=== PATIENT | female | born 1990 | race African-American/Black ===

== ENCOUNTER 2019-04-10 11:24 | Emergency (ER) | payer OTHER ==
[2019-04-10 11:47] VITALS: PULSE 88; BMI 24.3
[2019-04-10] MEDS ORDERED: FAMOTIDINE 20 MG/50 ML IVPB 20 MG/50 ML MG IVPB ONE ×2 (12:06→12:30)
[2019-04-10] MEDS ORDERED: SODIUM CHLORIDE 1,000 ML IV STA (12:06)
[2019-04-10] MEDS ORDERED: ONDANSETRON 4 MG/2 ML VIAL IVPUSH ONE (12:07)
[2019-04-10] MEDS ORDERED: ONDANSETRON 4 MG/2 ML VIAL ONE (12:30)
[2019-04-10 12:53] LABS: PH,URINE 7.5 (5.0-8.0); URINE APPEARANCE CLEAR; URINE BILIRUBIN NEGATIVE (NEGATIVE); URINE COLOR YELLOW; URINE GLUCOSE (UA) NEGATIVE (NEGATIVE); URINE KETONE NEGATIVE (NEGATIVE); URINE LEUK ESTERASE NEGATIVE (NEGATIVE); URINE NITRITE NEGATIVE (NEGATIVE); URINE PROTEIN NEGATIVE (NEGATIVE); URINE UROBILINOGEN 0.2 mg/dL (0.2-1.0)
[2019-04-10 12:56] LABS: BASO % 0.3 % (0-2.0); EOS % 0.3 % (0-4.5); HEMATOCRIT 34.7 % (32.4-45.2); HEMOGLOBIN 11.8 GM/dL (10.7-15.3); MCH 27.3 pg (25.7-33.7); MEAN CELL VOLUME 80.2 fl (80-96); MEAN PLT VOLUME 8.7 fl (7.5-11.1); MONO % 4.8 % (3.8-10.2); NEUT % 86.6 % (42.8-82.8); PLATELET COUNT 232 K/MM3 (134-434); RBC 4.32 M/mm3 (3.60-5.2); WHITE BLOOD COUNT 11.6 K/mm3 (4.0-10.0)
[2019-04-10 13:25] LABS: ALBUMIN 3.5 g/dl (3.4-5.0); BILIRUBIN,TOTAL 0.3 mg/dL (0.2-1); BLOOD UREA NITROGEN 7.9 mg/dL (7-18); CALCIUM 9.2 mg/dL (8.5-10.1); CREATININE 0.5 mg/dL (0.55-1.3); POTASSIUM 3.7 mmol/L (3.5-5.1); TOT PROT 7.3 g/dl (6.4-8.2)
--- NOTE | 2019-04-10 14:48 | PDOC ---
Documentation entered by Clem Rausch SCRIBE, acting as scribe for Phoenix Smith MD. Phoenix Smith MD: This documentation has been prepared by the Shalom kimble Daniel, SCRIBE, under my direction and personally reviewed by me in its entirety. I confirm that the documentation accurately reflects all work, treatment, procedures, and medical decision making performed by me. History of Present Illness - General Chief Complaint: Pain Stated Complaint: 8 WEEKS/ ABD PAIN History Source: Patient Exam Limitations: No Limitations - History of Present Illness Initial Comments: 04/10/19 12:10 The patient is a 29 year old female with a past medical history of appendectomy (July 2012, [facility]) here today for evaluation of abdominal pain. The patient reports that the pain started suddenly around 10 AM this morning and describes it as constant first but now intermittent, most prominent in the upper abdominal area, and notes associated nausea, vomiting, and dizziness. She states that she is 8 weeks and that this is a desired . Patient denies headache. Denies fever, chills. Denies chest pain, shortness of breath. Denies diarrhea. Allergies: NKA Past History - Past Medical History Allergies/Adverse Reactions: Allergies Allergy/AdvReac Type Severity Reaction Status Date / Time No Known Allergies Allergy Verified 04/10/19 11:47 Home Medications: Ambulatory Orders Famotidine [Pepcid -] 20 mg PO BID #14 tablet 04/10/19 Review of Systems - Review of Systems Able to Perform ROS?: Yes Comments:: 04/10/19 12:10 CONSTITUTIONAL: +dizziness. No fever, no chills, no fatigue EYES: No visual changes ENT: No ear pain, no sore throat CARDIOVASCULAR: No chest pain, no palpitations RESPIRATORY: No cough, no SOB GI: +abdominal pain. +nausea. +vomiting. No constipation, no diarrhea GENITOURINARY: No dysuria, no frequency, no hematuria MUSKULOSKELETAL: No backpain, no joint pain, no myalgias SKIN: No rash NEURO: No headache *Physical Exam - Vital Signs Last Vital Signs Temp Pulse Resp BP Pulse Ox 97.8 F 88 18 130/90 100 04/10/19 11:37 04/10/19 11:37 04/10/19 11:37 04/10/19 11:37 12/04/19 11:37 - Physical Exam 04/10/19 12:14 CONSTITUTIONAL: Well-appearing; well-nourished; in no apparent distress HEAD: Normocephalic; atraumatic EYES: PERRL; EOM intact, no scleral icterus ENMT: External appears normal; normal oropharynx NECK: Supple; non-tender; no cervical lymphadenopathy CARD: Normal S1, S2; no murmurs, rubs, or gallops RESP: Normal chest excursion with respiration; breath sounds clear and equal bilaterally; no wheezes, rhonchi, or rales ABD: +right upper quadrant and epiagstric tenderness to palpation. Soft, non- distended; no palpable organomegaly, no palpable hernias EXT: Normal ROM in all four extremities; non-tender to palpation; distal pulses intact SKIN: Warm, dry, no rash NEURO: No focal neurological deficiencies. ED Treatment Course - LABORATORY CBC & Chemistry Diagram: 04/10/19 12:17 04/10/19 12:17 - ADDITIONAL ORDERS Additional order review: Laboratory Results 04/10/19 04/10/19 12:17 12:17 Sodium 136 Potassium 3.7 Chloride 103 Carbon Dioxide 24 Anion Gap 10 BUN 7.9 Creatinine 0.5 L Est GFR (CKD-EPI)AfAm 153.73 Est GFR (CKD-EPI)NonAf 132.64 Random Glucose 72 L Calcium 9.2 Total Bilirubin 0.3 AST 12 L ALT 16 Alkaline Phosphatase 64 Total Protein 7.3 Albumin 3.5 Lipase 141 Urine Color Yellow Urine Appearance Clear Urine pH 7.5 Ur Specific Adrian 1.013 Urine Protein Negative Urine Glucose (UA) Negative Urine Ketones Negative Urine Blood Negative Urine Nitrite Negative Urine Bilirubin Negative Urine Urobilinogen 0.2 Ur Leukocyte Esterase Negative 04/10/19 12:17 RBC 4.32 MCV 80.2 MCHC 34.0 RDW 14.0 MPV 8.7 Neutrophils % 86.6 H Lymphocytes % 8.0 Monocytes % 4.8 Eosinophils % 0.3 Basophils % 0.3 - RADIOLOGY Radiology Studies Ordered: Category Date Time Status ABDOMEN US -LIMITED [US] Stat Ultrasound 04/10/19 12:05 Completed <14WKS US [US] Stat Ultrasound 04/10/19 12:06 Completed - Medications Given in the ED: ED Medications Discontinued Medications Generic Name Dose Route Start Last Admin Trade Name Freq PRN Reason Stop Dose Admin Famotidine/Sodium Chloride 20 mg in 50 mls @ 100 mls/hr 04/10/19 12:06 12:34 Pepcid 20 Mg Premixed Ivpb - IVPB 04/10/19 12:35 100 mls/hr ONCE ONE Administration Sodium Chloride 1,000 mls @ 1,000 mls/hr 04/10/19 12:06 04/10/19 12:34 Normal Saline - IV 04/10/19 13:05 1,000 mls/hr ASDIR STA Administration Ondansetron HCl 4 mg 04/10/19 12:07 04/10/19 12:34 Zofran Injection IVPUSH 04/10/19 12:08 4 mg ONCE ONE Administration Medical Decision Making - Medical Decision Making 04/10/19 14:46 Patient is a 29-year-old female, 3 para 1, at 8 weeks gestation who presents with atraumatic epigastric and right upper quadrant pain, associated with nausea and several episodes of nonbloody, nonbilious vomiting. In the ER, patient is afebrile, normotensive with initial exam revealing right upper quadrant and most pronounced epigastric tenderness to deep palpation without guarding or rebound. Patient underwent a laparoscopic appendectomy in 2012 at [facility]. Patient received IV fluids, IV Pepcid and Zofran as well as IV fluids. On reevaluation, patient is asymptomatic and tolerates p.o. CBC/CMP/lipase within normal limit. Ultrasound reveals an IUP with FHR and a small retro-placental bleed. I do not suspect an acute abdomen in this case. Will discharge with outpatient follow-up. 04/10/19 15:26 Patient reassessed. Patient is resting comfortably, symptom-free. Patient tolerates p.o. Will discharge with p.o. Pepcid with outpatient follow-up. Discharge - Discharge Information Problems reviewed: Yes Clinical Impression/Diagnosis: Epigastric pain Nausea and vomiting Qualifiers: Vomiting type: unspecified Vomiting Intractability: non-intractable Qualified Code(s): R11.2 - Nausea with vomiting, unspecified Qualifiers: Weeks of gestation: 8 weeks Qualified Code(s): Z3A.08 - 8 weeks gestation of Condition: Stable Disposition: HOME - Follow up/Referral Referrals: Bryan Estrada MD [Staff Physician] - - Patient Discharge Instructions Patient Printed Discharge Instructions: DI for Vomiting -- Adult, DI for Abdominal Pain -- Early - Post Discharge Activity
[2019-04-10 16:41] VITALS: BP 114/73; TEMP 97.7
== END 2019-04-10 16:35 | disposition home or self-care (01) ==
LOC: JER 11:24
PROC: 3E033GC Introduction of Other Therapeutic Substance into Peripheral Vein, Percutaneous Approach (ICD-10-PCS; principal; 2019-04-10)
DX: O26.891 Other specified pregnancy related conditions, first trimester (principal); Z3A.08 8 weeks gestation of pregnancy; R11.2 Nausea with vomiting, unspecified; R10.13 Epigastric pain
CPT/HCPCS: 36415; 76705-TC; 76801-TC; 80053; 81003; 83690; 85025; 87086; 99283-25; J7030

== ENCOUNTER 2019-04-21 17:17 | Emergency (ER) | payer OTHER ==
[2019-04-21 17:27] VITALS: BP 134/87; PULSE 92; TEMP 97.9; BMI 24.3
[2019-04-21] MEDS ORDERED: CYCLOBENZAPRINE HCL 10 MG TABLET (FP) PO ONE (17:42)
[2019-04-21] MEDS ORDERED: CYCLOBENZAPRINE HCL 10 MG TABLET (FP) ONE (17:46)
--- NOTE | 2019-04-21 17:49 | PDOC ---
History of Present Illness - General Chief Complaint: Pain Stated Complaint: BACK PAIN ( 9 WEKS PREG) Time Seen by Provider: 04/21/19 17:28 History Source: Patient Exam Limitations: No Limitations Past History - Past Medical History Allergies/Adverse Reactions: Allergies Allergy/AdvReac Type Severity Reaction Status Date / Time No Known Allergies Allergy Verified 04/21/19 17:27 Home Medications: Ambulatory Orders Famotidine [Pepcid -] 20 mg PO BID #14 tablet 04/10/19 Cyclobenzaprine HCl [Flexeril -] 10 mg PO TID PRN #12 tablet 04/21/19 COPD: No - Psycho Social/Smoking Cessation Hx Smoking History: Never smoked *Physical Exam - Vital Signs Last Vital Signs Temp Pulse Resp BP Pulse Ox 97.9 F 92 H 18 134/87 99 04/21/19 17:24 04/21/19 17:24 04/21/19 17:24 04/21/19 17:24 04/21/19 17:24 - Physical Exam General Appearance: No: Apparent Distress Respiratory/Chest: positive: Lungs Clear, Normal Breath Sounds. negative: Respiratory Distress Cardiovascular: positive: Regular Rhythm, Regular Rate, S1, S2. negative: Murmur Gastrointestinal/Abdominal: positive: Normal Bowel Sounds, Soft. negative: Tender, Distended, Guarding, Rebound Musculoskeletal: positive: CVA Tenderness (mild along L side), Muscle Spasm ( along L mid thoracic paraspinal muscles). negative: Vertebral Tenderness Integumentary: positive: Normal Color Neurologic: positive: Alert, Normal Mood/Affect Medical Decision Making - Medical Decision Making 29 y/o F (hx of appendectomy, 1 ) currently 9 weeks presents with mid thoracic pain, worse with movement of spine from last week. She developed a mild cough a few days which also exacerbates her back pain. Saw PCP 2 days ago who told her to take Tylenol, but states it has not been helping. Last took Tylenol at 4 PM. 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 Denies fever, sob, cp, abd pain, n/v, urinary sxs, vaginal bleeding, trauma. Seems like muscle spasms given palpable on exam However, also with mild CVA tenderness; not a high suspicion for pyelo given afebrile without urinary complaints However, will check urine given Will also give Flexeril [Of note, patient had normal OB ultrasound 04/10/19 so not suspicious for ectopic ; also unlikely miscarriage given no vag bleeding] 04/21/19 17:46 Urine negative 04/21/19 18:03 Discharge - Discharge Information Problems reviewed: Yes Clinical Impression/Diagnosis: Muscle spasm Condition: Stable Disposition: HOME - Admission No - Additional Discharge Information Prescriptions: Cyclobenzaprine HCl [Flexeril -] 10 mg PO TID PRN #12 tablet PRN Reason: Muscle Spasms Prescription Drug Monitoring Program (I-STOP) results: I-STOP not reviewed - Follow up/Referral - Patient Discharge Instructions Patient Printed Discharge Instructions: DI for Muscle Spasm Additional Instructions: Thank you for choosing [facility]. It was a pleasure taking care of you. Continue Tylenol every 4 hours as needed for pain Use Flexeril for muscle spasms. This medication can make you drowsy Heating pads/epsom salt baths may also help Follow-up with your doctor in 2 days Return to the Emergency Department if your symptoms worsen or persist, you have fever, shortness of breath, chest pain, severe abdominal pain, vomiting, vaginal bleeding or other concerning symptoms. - Post Discharge Activity Work/Back to School Note: Back to Work
[2019-04-21 17:57] LABS: PH,URINE 6.5 (5.0-8.0); URINE APPEARANCE CLEAR; URINE BILIRUBIN NEGATIVE (NEGATIVE); URINE COLOR YELLOW; URINE GLUCOSE (UA) NEGATIVE (NEGATIVE); URINE KETONE NEGATIVE (NEGATIVE); URINE LEUK ESTERASE NEGATIVE (NEGATIVE); URINE NITRITE NEGATIVE (NEGATIVE); URINE PROTEIN NEGATIVE (NEGATIVE); URINE UROBILINOGEN 0.2 mg/dL (0.2-1.0)
== END 2019-04-21 18:13 | disposition home or self-care (01) ==
LOC: JERFT 17:17
DX: O26.891 Other specified pregnancy related conditions, first trimester (principal); Z3A.09 9 weeks gestation of pregnancy; M62.830 Muscle spasm of back
CPT/HCPCS: 81003; 87086; 99281-25

== ENCOUNTER 2019-06-19 09:01 | Emergency (ER) | payer OTHER ==
[2019-06-19 09:18] VITALS: TEMP 97.9; BMI 23.3
--- NOTE | 2019-06-19 10:44 | PDOC ---
History of Present Illness - General Chief Complaint: Pain, Acute Stated Complaint: CONSTIPATION/ABD PAIN 18 WKS PRG Time Seen by Provider: 06/19/19 10:28 - History of Present Illness Initial Comments: 06/19/19 10:42 CHIEF COMPLAINT: pelvic pressure in HISTORY OF PRESENT ILLNESS: 29 yo 18 week F (LMP 10/8) with no significant PMH presents to ED with lower abdominal/pelvic pressure x 4 days. Patient reports she has felt constipated since Monday. She reports having having bowel movements but that they are hard. She also report nausea throughout her but has had 4 episodes of vomiting in the last 24 hours. Patient reports pelvic pressure and low back pain as well as a headache. Denies fever, chills, or diarrhea . JOCELYNN Gates. Last visit 06/06, normal US on 06/11. No recent travel or sick contacts. PAST MEDICAL HISTORY: Denies past medical history FAMILY HISTORY: Denies SOCIAL HISTORY: Denies tobacco, alcohol, illicit drug use. SURGICAL HISTORY: Denies ALLERGIES: No known drug allergies REVIEW OF SYSTEMS General/Constitutional: Denies fever or chills. Denies weakness, weight change. HEENT: Denies change in vision. Denies ear pain or discharge. Denies sore throat. Cardiovascular: Denies chest pain or shortness of breath. Respiratory: Denies cough, wheezing, or hemoptysis. Gastrointestinal: Lower abdominal/pelvic pain x 4 days. Constipation, vomiting. Denies diarrhea . Denies rectal bleeding. Genitourinary: Denies dysuria, frequency, or change in urination. Musculoskeletal: Denies joint or muscle swelling or pain. Denies neck or back pain. Skin and breasts: Denies rash or easy bruising. Neurologic: Denies headache, vertigo, loss of consciousness, or loss of sensation. Psychiatric: Denies depression or anxiety. PHYSICAL EXAM General Appearance: Well-appearing, appropriately dressed. No apparent distress , no intoxication. HEENT: EOMI, PERRLA, normal ENT inspection, normal voice, TMs normal, pharynx normal. No conjunctival pallor. No photophobia, scleral icterus. Neck: Supple. Trachea midline. No tenderness, rigidity, carotid bruit, stridor , lymphadenopathy, or thyromegaly. Respiratory/Chest: Lungs CTAB. No shortness of breath, chest tenderness, respiratory distress, accessory muscle use. No crackles, rales, rhonchi, stridor , wheezing, dullness Cardiovascular: RRR. S1, S2. No JVD, murmur, bradycardia, tachycardia. Vascular Pulses: Dorsalis-Pedis (R): 2+, Dorsalis-Pedis (L): 2+ Gastrointestinal/Abdominal: Mild TTP to b/l lower abdomen. Normal bowel sounds. Abdomen soft, non-distended. No tenderness or rebound tenderness. No organomegaly, pulsatile mass, guarding, hernia, hepatomegaly, splenomegaly. Lymphatic: No adenopathy, tenderness. Musculoskeletal/Extremities: TTP to lumbar spine and sacrum. FROM of all extremities, normal capillary refill. Pelvis Stable. No CVA tenderness. No tenderness to extremities, pedal edema, swelling, erythema or deformity. Integumentary: Appropriate color, dry, warm. No cyanosis, erythema, jaundice or rash Neurologic: or rn II-XII intact. Fully oriented, alert. Appropriate mood/affect. Motor strength 5/5. No appreciable EOM palsy, facial droop or sensory deficit. Past History - Past Medical History Allergies/Adverse Reactions: Allergies Allergy/AdvReac Type Severity Reaction Status Date / Time No Known Allergies Allergy Verified 06/19/19 09:18 Home Medications: Ambulatory Orders Famotidine [Pepcid -] 20 mg PO BID #14 tablet 04/10/19 Cyclobenzaprine HCl [Flexeril -] 10 mg PO TID PRN #12 tablet 04/21/19 Lactulose (Oral Use) [Cephulac -] 20 gm PO BID #1 bottle 06/19/19 COPD: No - Psycho Social/Smoking Cessation Hx Smoking History: Never smoked *Physical Exam - Vital Signs Last Vital Signs Temp Pulse Resp BP Pulse Ox 97.9 F 76 16 119/61 99 06/19/19 09:15 06/19/19 09:15 06/19/19 09:15 06/19/19 09:15 06/19/19 09:15 ED Treatment Course - LABORATORY CBC & Chemistry Diagram: 06/19/19 11:00 06/19/19 11:00 Medical Decision Making - Medical Decision Making 06/19/19 11:54 29 yo 18 week F (LMP 10/) with no significant PMH presents to ED with lower abdominal/pelvic pressure x 4 days. -labs, urine -TVUS 06/19/19 13:10 labs, US unremarkable. Likely round ligament pain in second trimester of . Will rx lactulose for constipation. F/u with OBGYN. Advised patient to take medication as prescribed and follow up with OB within the next week. Advised patient of signs and symptoms for return to ED. Patient verbalized understanding and agrees to plan. Discharge - Discharge Information Problems reviewed: Yes Clinical Impression/Diagnosis: Pain of round ligament during Constipation during Qualifiers: Trimester: second trimester Qualified Code(s): O99.612 - Diseases of the digestive system complicating , second trimester Condition: Stable Disposition: HOME - Admission No - Additional Discharge Information Prescriptions: Lactulose (Oral Use) [Cephulac -] 20 gm PO BID #1 bottle - Follow up/Referral Referrals: Alvaro Hodges II, DO [Primary Care Provider] - Parish Gates MD [Staff Physician] - - Patient Discharge Instructions Patient Printed Discharge Instructions: Common Discomforts and Bodily Changes During , DI for -- Discomforts and Remedies - Post Discharge Activity Work/Back to School Note: Back to Work
[2019-06-19] MEDS ORDERED: ACETAMINOPHEN 500 MG TABLET (FP) PO ONE (10:45)
[2019-06-19] MEDS ORDERED: ONDANSETRON 4 MG/2 ML VIAL IVPUSH ONE (10:46)
[2019-06-19] MEDS ORDERED: ONDANSETRON 4 MG/2 ML VIAL ONE (10:55)
[2019-06-19] MEDS ORDERED: ACETAMINOPHEN 325 MG TABLET (FP) ONE (10:55)
[2019-06-19 11:37] LABS: BASO % 0.2 % (0-2.0); EOS % 0.5 % (0-4.5); HEMATOCRIT 32.4 % (32.4-45.2); HEMOGLOBIN 11.3 GM/dL (10.7-15.3); LYMPH % 14.3 % (8-40); MCH 29.4 pg (25.7-33.7); MCHC 34.8 g/dl (32.0-36.0); MEAN CELL VOLUME 84.6 fl (80-96); MEAN PLT VOLUME 8.9 fl (7.5-11.1); MONO % 4.2 % (3.8-10.2); NEUT % 80.8 % (42.8-82.8); PLATELET COUNT 173 K/MM3 (134-434); RBC 3.83 M/mm3 (3.60-5.2)
[2019-06-19 12:16] LABS: ALBUMIN 3.1 g/dl (3.4-5.0); BILIRUBIN,TOTAL 0.3 mg/dL (0.2-1); BLOOD UREA NITROGEN 5.3 mg/dL (7-18); CALCIUM 8.7 mg/dL (8.5-10.1); CREATININE 0.4 mg/dL (0.55-1.3); POTASSIUM 3.8 mmol/L (3.5-5.1); TOT PROT 6.4 g/dl (6.4-8.2)
[2019-06-19 13:09] LABS: PH,URINE >= 9.0 (5.0-8.0); URINE APPEARANCE CLEAR; URINE BILIRUBIN NEGATIVE (NEGATIVE); URINE COLOR YELLOW; URINE GLUCOSE (UA) NEGATIVE (NEGATIVE); URINE KETONE NEGATIVE (NEGATIVE); URINE LEUK ESTERASE NEGATIVE (NEGATIVE); URINE NITRITE NEGATIVE (NEGATIVE); URINE PROTEIN NEGATIVE (NEGATIVE); URINE UROBILINOGEN 0.2 mg/dL (0.2-1.0)
[2019-06-19 13:33] VITALS: BP 95/62; PULSE 68
== END 2019-06-19 13:34 | disposition home or self-care (01) ==
LOC: JER 09:01
DX: O99.612 Diseases of the digestive system complicating pregnancy, second trimester (principal); R10.2 Pelvic and perineal pain; Z3A.18 18 weeks gestation of pregnancy
CPT/HCPCS: 36415; 76815-TC; 80053; 81003; 84702; 85025; 87086; 99285-25

== ENCOUNTER 2019-07-04 14:38 | Emergency (ER) | payer OTHER ==
[2019-07-04 14:44] VITALS: BP 113/59; PULSE 106; TEMP 98.1; BMI 24.0
[2019-07-04] MEDS ORDERED: ACETAMINOPHEN 325 MG TABLET (FP) ONE (15:09)
[2019-07-04] MEDS ORDERED: ACETAMINOPHEN 325 MG TABLET (FP) PO ONE (15:09)
--- NOTE | 2019-07-04 15:09 | PDOC ---
History of Present Illness - General Chief Complaint: Sore Throat Stated Complaint: 20WK VT/COLD SYMPTOMS Time Seen by Provider: 07/04/19 14:49 History Source: Patient Exam Limitations: No Limitations - History of Present Illness Initial Comments: 07/04/19 16:10 Chief complaint: Sore throat Patient is a 29-year-old female, 20 weeks , no medical problems, did not get flu shot with 1 day of chills and sore throat. Patient states she is unable to eat. Patient last took Tylenol at 9 AM. She states her daughter is sick with similar. Daughter has not gone to the doctor. Patient does not appear acutely ill GENERAL/CONSTITUTIONAL: No fever, + chills/weakness. no:dizziness HEAD, EYES, EARS, NOSE AND THROAT: No change in vision. No ear pain or discharge. + sore throat. CARDIOVASCULAR: No chest pain RESPIRATORY: No shortness of breath or cough GASTROINTESTINAL: No pain, nausea, vomiting, diarrhea or constipation GENITOURINARY: No dysuria MUSCULOSKELETAL: No neck or back pain SKIN: No rash NEUROLOGIC: No headache, vertigo, loss of consciousness, or loss of sensation. GENERAL: The patient is awake, alert, and fully oriented, in no acute distress. HEAD: Normal with no signs of trauma. EYES: Pupils equal, round and reactive to light, sclera anicteric, conjunctiva clear. ENT: pharynx: Mild erythema, no exudate, uvula midline. No signs of peritonsillar abscess, no sub-lingular swelling NECK: supple, no tenderness CHEST: clear, nontender, rr ABD: soft, nontender BACK: no tenderness or signs of injury EXTREMITIES: Normal range of motion, no edema. NEUROLOGICAL: Normal speech, normal gait. SKIN: Warm, Dry Past History - Past Medical History Allergies/Adverse Reactions: Allergies Allergy/AdvReac Type Severity Reaction Status Date / Time No Known Allergies Allergy Verified 06/19/19 09:18 Home Medications: Ambulatory Orders Amoxicillin 875 mg PO BID #20 tablet 07/04/19 Oseltamivir Phosphate [Tamiflu] 75 mg PO BID #10 capsule 07/04/19 COPD: No - Psycho Social/Smoking Cessation Hx Smoking History: Never smoked Hx Alcohol Use: No Drug/Substance Use Hx: No *Physical Exam - Vital Signs Last Vital Signs Temp Pulse Resp BP Pulse Ox 98.1 F 106 H 18 113/59 L 98 02/27/20 14:41 07/04/19 14:41 07/04/19 14:41 07/04/19 14:41 07/04/19 14:41 Medical Decision Making - Medical Decision Making 07/04/19 16:13 29-year-old female, 20 weeks , 1 day of chills, upper respiratory/sore throat symptoms. Patient has erythema to the throat, no signs of abscess, voice is normal. Patient able to take medicine. Patient did not get flu shot, also 20 weeks , even if strep is positive, will treat with Tamiflu. Strep is positive, flu negative, will send home on amoxicillin and Tamiflu Discussed issues, findings, results, applicable medications and treatments and follow-up. All these were understood and all questions were answered Discharge - Discharge Information Problems reviewed: Yes Clinical Impression/Diagnosis: Strep throat Condition: Stable Disposition: HOME - Admission No - Additional Discharge Information Prescriptions: Amoxicillin 875 mg PO BID #20 tablet Oseltamivir Phosphate [Tamiflu] 75 mg PO BID #10 capsule - Follow up/Referral Referrals: Alvaro Hodges II, DO [Primary Care Provider] - - Patient Discharge Instructions Patient Printed Discharge Instructions: DI for Tonsillectomy-Adult Additional Instructions: Drink 2-3 L of water daily Take the Tamiflu as directed in case you have the flu Take the amoxicillin every 12 hours for 10 days, do not stop it early even if you feel better Take Tylenol 650 mg every 4 hours for fever and pain Return to the nearest ER if short of breath, unable to swallow or feeling sicker Followup with your doctor in one to 2 days Beber 2-3 L de agua diariamente [place] Tamiflu segn las indicaciones en mira de que tenga gripe. [place] la amoxicilina cada 12 horas dwight 10 pryor, no la suspenda temprano incluso si se siente mejor [place] Tylenol 650 mg cada 4 horas para la fiebre y el dolor. Regrese a la claus de emergencias ms cercana si tiene dificultad para respirar, no puede tragar o se siente ms enfermo Seguimiento con clemens mdico en deepthi o dos pryor. - Post Discharge Activity Work/Back to School Note: Back to Work
== END 2019-07-04 15:51 | disposition home or self-care (01) ==
LOC: JERFT 14:38
DX: O26.892 Other specified pregnancy related conditions, second trimester (principal); O98.812 Other maternal infectious and parasitic diseases complicating pregnancy, second trimester; J02.0 Streptococcal pharyngitis; B95.0 Streptococcus, group A, as the cause of diseases classified elsewhere; Z3A.20 20 weeks gestation of pregnancy
CPT/HCPCS: 87804; 87880; 99283-25

== ENCOUNTER 2019-11-11 16:20 | Inpatient (IN) | payer OTHER ==
[2019-11-11 19:00] LABS: BASO % 0.3 % (0-2.0); EOS % 0.2 % (0-4.5); HEMOGLOBIN 9.7 GM/dL (10.7-15.3); LYMPH % 13.1 % (8-40); MCH 24.5 pg (25.7-33.7); MCHC 32.3 g/dl (32.0-36.0); MEAN PLT VOLUME 9.1 fl (7.5-11.1); MONO % 4.9 % (3.8-10.2); NEUT % 81.5 % (42.8-82.8); PLATELET COUNT 235 K/MM3 (134-434); RBC 3.95 M/mm3 (3.60-5.2); RDW 15.1 % (11.6-15.6); WHITE BLOOD COUNT 8.7 K/mm3 (4.0-10.0)
[2019-11-11 19:17] LABS: INR 0.95 (0.83-1.09); PROTHROMBIN TIME (PATIENT) 11.2 SEC (9.7-13.0)
[2019-11-11 19:20] LABS: ACTIVATED PTT 24.2 SECONDS (25.2-36.5)
[2019-11-11 19:24] LABS: BLOOD UREA NITROGEN 7.9 mg/dL (7-18); CALCIUM 8.7 mg/dL (8.5-10.1); CREATININE 0.6 mg/dL (0.55-1.3); POTASSIUM 4.1 mmol/L (3.5-5.1)
--- NOTE | 2019-11-11 20:10 | PD.OB.PROG ---
Past Medical History - Primary Care Physician PCP:: Marla Cheney Documenting Provider Type: Laborist (Admitted for surveillance. [facility] 12/13.) - Admission Chief Complaint: Admitted for surveillance. [facility] 12/13. History of Present Illness: Previous c/section. Scheduled for repeat in 48 hours Fibroids. History Source: Medical Record, Caregiver - Nursing Documentation Maternal Triage Index: Maternal Triage Index ( Priority 3, Prompt MFTI) Nursing Documentation Reviewed: Yes - Past Medical History TECHNOLOGY ANALYST: Denies/None Cardio/Vascular: Denies/None Pulmonary: Denies/None Gastrointestinal: Denies/None Hepatobiliary: Denies/None Renal/: Denies/None ...: 3 ...Para: 1 ...Term: 1 ...: 0 ...Spon : 1 ...LMP: 02/12/19 ... Weeks Gestation by Dates: 38.6 ...EDC by Dates: 11/19/19 Heme/Onc: Denies/None Infectious Disease: Denies/None Psych: Denies/None Musculoskeletal: Denies/None Rheumatology: Denies/None ENT: Denies/None Endocrine: Denies/None Dermatology: Denies/None - Past Surgical History Past Surgical History: Yes: - Smoking History Smoking history: Never smoked - Alcohol/Substance Use Hx Alcohol Use: No - Social History History of Recent Travel: No Review of Systems - Review of Systems Constitutional: reports: No Symptoms Eyes: reports: No Symptoms HENT: reports: No Symptoms Neck: reports: No Symptoms Cardiovascular: reports: No Symptoms Respiratory: reports: No Symptoms Gastrointestinal: reports: No Symptoms Genitourinary: reports: No Symptoms Breasts: reports: No Symptoms Reported Musculoskeletal: reports: No Symptoms Integumentary: reports: No Symptoms Neurological: reports: No Symptoms Endocrine: reports: No Symptoms Hematology/Lymphatic: reports: No Symptoms Psychiatric: reports: No Symptoms Physical Exam - Obstetrical Vital Signs: Vital Signs Temperature 98.6 F 11/11/19 18:31 Pulse Rate 85 11/11/19 18:31 Respiratory Rate 16 11/11/19 18:31 Blood Pressure 120/77 11/11/19 18:31 O2 Sat by Pulse Oximetry (%) - Vaginal Exam/OB Vaginal Exam Deferred: No - Physical Exam Musculoskeletal: Yes: WNL - Labs Lab Results: CBC, BMP 07/06/20 18:38 11/11/19 18:38 Assessment/Plan BPP 12/13. NST with limited accelerations, good reactivity. Single late decel w contraction. Cat 2. Suggest: keep patient, cont. monitoring. Delivery earlier than scheduled. D/W Dr Cheney. She will analyse the tracing and decide.
[2019-11-11] MEDS ORDERED: ONDANSETRON 4 MG/2 ML VIAL IVPUSH PRN (21:56)
[2019-11-11] MEDS ORDERED: KETOROLAC TROMETHAMINE 30 MG/1 ML VIAL ONE (22:08)
[2019-11-11] MEDS ORDERED: DEXAMETHASONE SOD PHOSPHATE 4 MG/1 ML VIAL ONE (22:08)
[2019-11-11] MEDS ORDERED: OXYTOCIN 10 UNITS/ML VIAL ONE (22:08)
[2019-11-11] MEDS ORDERED: CITRIC ACID/SODIUM CITRATE 30 ML UNIT-DOSE CUP PO ONE (22:57)
[2019-11-11] MEDS ORDERED: ELECTROLYTE-148 SOLN 1,000 ML IV SCH (23:00)
--- NOTE | 2019-11-11 23:06 | HP ---
Past Medical History - Admission Chief Complaint: testing History of Present Illness: 29yo @ 38.5wks here for monitoring. Pt went for BPP today with MFM, 10/13 for no movement; when patient presented to L&D she reported regular movement again. NST reactive. Had repeat BPP with Radiology 12/13 but FHT had intermittent late decelerations after her second sonogram. Prolonged monitoring then done, and intermittent late decelerations continued. Decision made to proceed with RLTCS in light of the tracing. No VB/LOF. Irreg ctx. +FM PNC @ [address] Preg c/b: prior C/S, with planned repeated scheduled for 11/12 History Source: Patient Limitations to Obtaining History: No Limitations - Past Medical History ...: 3 ...Para: 1 ...Term: 1 ...: 0 ...Spon : 1 ...LMP: 02/12/19 ... Weeks Gestation by Dates: 38.6 ...EDC by Dates: 11/19/19 - Past Surgical History Past Surgical History: Yes: Hx Myomectomy: No Hx Transabdominal Cerclage: No - Smoking History Smoking history: Never smoked - Alcohol/Substance Use Hx Alcohol Use: No - Social History History of Recent Travel: No Home Medications - Allergies Allergies/Adverse Reactions: Allergies Allergy/AdvReac Type Severity Reaction Status Date / Time shellfish derived AdvReac Mild Itching Verified 11/11/19 18:29 - Home Medications Home Medications: Ambulatory Orders Vitamins (Sjr) - 1 tab PO DAILY 10/31/19 Physical Exam - Maternity Vital Signs: Vital Signs Temperature 98.3 F 11/11/19 21:56 Pulse Rate 85 11/11/19 21:56 Respiratory Rate 20 11/11/19 21:56 Blood Pressure 137/83 11/11/19 21:56 O2 Sat by Pulse Oximetry (%) Constitutional: Yes: Well Nourished, No Distress, Calm - Abdominal Exam/OB Number of Fetuses: Single Contractions: Yes Regularity: Irregular Intensity: Unaware Monitor Mode: External Heart Rate Location: [facility] Category: II Accelerations: Non-Uniform Decelerations: Late - Vaginal Exam/OB Vaginal Bleeding: No Presentation: Vertex/Position - Labs Lab Results: CBC, BMP 11/11/19 18:38 11/11/19 18:38 Imaging - Results Ultrasound: Report Reviewed Problem List - Problems (1) Previous section complicating Code(s): O34.219 - MATERNAL CARE FOR UNSP TYPE SCAR FROM PREVIOUS DEL Assessment/Plan 29yo @ 38.5wks here for prolonged monitoring, Cat II tracing Admit to L&D NPO, IVFs Admission labs Cat II tracing Decision discussed with patient, including reasoning for repeat C/S and risks (bleeding/infection/injury to surrounding tissue). All questions answered. Consents signed. Anesthesia aware. Proceed to OR Betsey Cheney MD
[2019-11-11] MEDS ORDERED: morphine SULFATE/PF 0.5 MG/ML (2cc Syringe - QUVA) ONE (23:55)
[2019-11-12 00:16] VITALS: BMI 26.2
[2019-11-12] MEDS ORDERED: METHYLERGONOVINE MALEATE 0.2 MG/1 ML AMP IM PRN (00:39)
--- NOTE | 2019-11-12 00:40 | OP ---
Operative Note - Note: Operative Date: 11/12/19 Pre-Operative Diagnosis: 38 week , NRHFHT, Prior C/S Operation: Repeat Low Transverse Findings: VFI, LOT, no nuchal, no meconium. Weight pending. Apgars 9/9. Normal tubes and ovaries bilaterally Post-Operative Diagnosis: Same as Pre-op Surgeon: Marla Cheney Senior Clinical Consultant: Chucky Sarmiento Anesthesiologist/ACOUSTIC ENGINEER: Jarrett Oshea Anesthesia: Spinal Estimated Blood Loss (mls): 500 Drains, Volume Out (mls): 100 (clear urine) Operative Report Dictated: Yes
[2019-11-12] MEDS ORDERED: OXYTOCIN 20 UNITS in 0.9% NS 20 UNIT/1,000 ML INFUS.BAG IV ONE (02:05)
[2019-11-12] MEDS: OXYTOCIN 20 UNITS in 0.9% NS 20 UNIT/1,000 ML INFUS.BAG IV SCH ×2 (02:32→11:39)
[2019-11-12] MEDS: IBUPROFEN 800 MG/8 ML IJ IVPB PRN ×2 (02:33→13:32)
--- NOTE | 2019-11-12 09:16 | OP ---
DATE OF OPERATION: 11/12/2019 PREOPERATIVE DIAGNOSIS: [id number]-rbsjl-[id number] , nonreassuring heart tracings, prior section. POSTOPERATIVE DIAGNOSIS: Wfwawi-rqryh-[id number] , nonreassuring heart tracings, prior section. PROCEDURE: Repeat low transverse section. ANESTHESIA: Spinal. SURGEON: Marla Cheney MD ULTRASOUND APPLICATIONS SPECIALIST: TARSHA Luna INTRAVENOUS FLUIDS: Per Anesthesia record. ESTIMATED BLOOD LOSS: 500. URINE OUTPUT: 100 mL of clear urine at the end of the procedure. FINDINGS: Viable female infant, LOT. No nuchal, no meconium. Weight pending. 9, 9. Normal tubes and ovaries bilaterally. COMPLICATIONS: None. Patient stable to recovery room. DESCRIPTION OF PROCEDURE: After the appropriate consents were signed, the patient was taken to the operating room. Spinal anesthesia was administered. Sterile Casper catheter was inserted prior to entry into the operating room. The abdomen was prepped and draped in normal sterile fashion. Timeout was performed confirming correct patient and procedure. Pfannenstiel incision was made through the previous incision and carried through to the underlying layer until the fascia was nicked in the midline. Fascia was then extended laterally with the Zarate scissors. The inferior aspect of the fascia was grasped with a Lenka clamp, tented upwards, and the rectus muscle was dissected off bluntly and with the Zarate scissors. Attention was then paid to the superior aspect, which was taken down in a similar fashion. The rectus muscles were bluntly in the midline. Bladder flap was created with the Metzenbaum scissors and blunt dissection. Bladder blade was adjusted. Uterus was incised in a low transverse fashion. Clear amniotic fluid was noted. The infant's head was delivered without difficulty, as were remaining shoulder and body. The cord was clamped and cut. The infant was handed to the waiting nursery staff. The placenta was then cleared manually. The uterus was cleared of all clot and debris. The hysterotomy was closed in a single layer with a 1-0 Vicryl. An area of the patient's right hysterotomy was reapproximated with additional 0 Vicryl to active hemostasis. The gutters were cleared of all clot and debris. The adnexa were inspected and noted to be normal. The hysterotomy was reexamined and noted to be normal and hemostatic. The muscles were then closed with a 2-0 chromic. The fascia was closed with a 0 Vicryl. The skin was closed with cachorro. All sponge, lap, needle counts were correct x3. The patient did receive Ancef at the start of the procedure. She was taken from the operating room to the recovery area in stable condition. MD PAULINA DAMON/[id number]
[2019-11-12] MEDS: FERROUS SO4 325 MG TABLET (FP) PO SCH ×2 (10:10→21:28)
[2019-11-12] MEDS: PRENATAL VITAMINS W/ FOLIC ACID TABLET (FP) PO SCH (10:10)
--- NOTE | 2019-11-12 14:09 | PN ---
Progress Note (short form) - Note Progress Note: Pt seen and examined. VSS, no N/V, GRANADOS well. no apparent complications.
[2019-11-12] MEDS: SIMETHICONE 80 MG TAB.CHEW (FP) PO PRN ×2 (16:33→21:30)
[2019-11-12] MEDS: oxyCODONE HCL 5 MG TABLET PO PRN ×2 (18:23→21:29)
[2019-11-12] MEDS: ACETAMINOPHEN 325 MG TABLET (FP) PO PRN ×2 (18:25→21:29)
[2019-11-12] MEDS: IBUPROFEN 600 MG TABLET (FP) PO PRN (21:30)
[2019-11-13] MEDS ORDERED: BISACODYL 10 MG SUPP.RECT RC PRN (00:39)
[2019-11-13] MEDS: oxyCODONE HCL 5 MG TABLET PO PRN ×4 (05:48→21:28)
[2019-11-13] MEDS: IBUPROFEN 600 MG TABLET (FP) PO PRN ×3 (05:49→21:28)
[2019-11-13 08:59] LABS: BASO % 0.2 % (0-2.0); EOS % 0.7 % (0-4.5); HEMATOCRIT 28.7 % (32.4-45.2); HEMOGLOBIN 9.3 GM/dL (10.7-15.3); LYMPH % 16.8 % (8-40); MCH 24.3 pg (25.7-33.7); MCHC 32.2 g/dl (32.0-36.0); MEAN CELL VOLUME 75.4 fl (80-96); MEAN PLT VOLUME 8.8 fl (7.5-11.1); MONO % 5.1 % (3.8-10.2); NEUT % 77.2 % (42.8-82.8); PLATELET COUNT 209 K/MM3 (134-434); RBC 3.81 M/mm3 (3.60-5.2); WHITE BLOOD COUNT 9.3 K/mm3 (4.0-10.0)
--- NOTE | 2019-11-13 09:37 | PN ---
Post Progress Note - Subjective Subjective: no complains , pain scale 9/10 Post Day: 1 Type of Delivery: Repeat C/S Vital Signs: Vital Signs Temperature 98.7 F 11/12/19 22:00 Pulse Rate 70 11/12/19 22:00 Respiratory Rate 18 11/13/19 00:00 Blood Pressure 116/70 11/12/19 22:00 O2 Sat by Pulse Oximetry (%) 98 11/12/19 09:00 Breast Exam: Yes: Soft, Other (using Breast pump ). No: Engorged Uterus: Yes: Fundus Firm, Fundus below umbilicus, Non-tender Incision: Yes: Antonella intact. No: Redness, Oozing Abdomen/GI: Yes: Abdomen soft, Tender, Passing flatus, Tolerating PO (diet). No: Abdominal Distention Lochia: Yes: Rubra Lochia, amount: Moderate Extremities: Yes: Calves non-tender Perineum: Yes: Intact Activity: Ambulating - Labs Labs: CBC WBC 9.3 K/mm3 (4.0-10.0) 11/13/19 08:05 RBC 3.81 M/mm3 (3.60-5.2) 11/13/19 08:05 Hgb 9.3 GM/dL (10.7-15.3) L 11/13/19 08:05 Hct 28.7 % (32.4-45.2) L 11/13/19 08:05 MCV 75.4 fl (80-96) L 11/13/19 08:05 MCH 24.3 pg (25.7-33.7) L 11/13/19 08:05 MCHC 32.2 g/dl (32.0-36.0) 11/13/19 08:05 RDW 15.0 % (11.6-15.6) 11/13/19 08:05 Plt Count 209 K/MM3 (134-434) 11/13/19 08:05 MPV 8.8 fl (7.5-11.1) 11/13/19 08:05 Absolute Neuts (auto) 7.2 K/mm3 (1.5-8.0) 11/13/19 08:05 Neutrophils % 77.2 % (42.8-82.8) 11/13/19 08:05 Lymphocytes % 16.8 % (8-40) D 11/13/19 08:05 Monocytes % 5.1 % (3.8-10.2) 11/13/19 08:05 Eosinophils % 0.7 % (0-4.5) D 11/13/19 08:05 Basophils % 0.2 % (0-2.0) 11/13/19 08:05 Nucleated RBC % 0 % (0-0) 11/13/19 08:05 Problem List - Problems (1) Status post section routine follow-up Code(s): Z39.2 - ENCOUNTER FOR ROUTINE FOLLOW-UP; Z98.891 - HISTORY OF UTERINE SCAR FROM PREVIOUS SURGERY Assessment/Plan s/p rc/s stable plan ct po care
[2019-11-13] MEDS: PRENATAL VITAMINS W/ FOLIC ACID TABLET (FP) PO SCH (09:47)
[2019-11-13] MEDS: FERROUS SO4 325 MG TABLET (FP) PO SCH ×2 (09:47→21:28)
[2019-11-13] MEDS: ACETAMINOPHEN 325 MG TABLET (FP) PO PRN ×2 (12:53→21:28)
[2019-11-13] MEDS: SIMETHICONE 80 MG TAB.CHEW (FP) PO PRN ×3 (12:54→21:27)
--- NOTE | 2019-11-13 17:03 | PATH ---
Surgical Pathology Report Patient Name: SALMA GARCIA Med. Rec. #: [id number] /Age/Gender: 1990 (Age: 29) / F Account: [id number] Location: [facility] OBS/[employer] Taken: 11/11/2019 Received: 11/12/2019 Reported: 11/13/2019 Physicians: Marla Cheney Specimen(s) Received PLACENTA Clinical History 38.6 weeks previous 07/2013 Final Diagnosis PLACENTA: THIRD TRIMESTER PLACENTA WITH SUBCHORIONIC FIBRIN DEPOSITION. TRIVASCULAR CORD. MEMBRANES WITH NO DIAGNOSTIC ABNORMALITIES. Electronically Signed Nina Norris M.D. Gross Description The specimen is received fresh labeled placenta and is a 445 gram, 17.0 x 16.5 x 2.5 cm. placenta with attached membranes and umbilical cord. The attached membranes are browne, translucent with focal opacities and insert marginally. The umbilical cord measures 40 cm. in length and averages 1.2 cm. in diameter. The cord inserts eccentrically, 3 cm. to the nearest margin. No true knots or strictures are identified. Cut surface of the umbilical cord reveals 3 vessels. The surface is flor-blue with minimal fibrin deposition and appropriate caliber vessels. The maternal surface is red-brown with focal defects. Sectioning reveals red-brown, spongy parenchyma. No lesions are identified. Bonderizer sections are submitted in three cassettes as follows: 1- membrane rolls and umbilical cord; 2-3- full thickness sections of placenta. /11/12/2019 saudi11/12/2019
[2019-11-14] MEDS: ACETAMINOPHEN 325 MG TABLET (FP) PO PRN ×4 (06:04→22:46)
[2019-11-14] MEDS: IBUPROFEN 600 MG TABLET (FP) PO PRN ×4 (06:04→22:45)
[2019-11-14] MEDS: SIMETHICONE 80 MG TAB.CHEW (FP) PO PRN ×4 (06:05→22:45)
[2019-11-14] MEDS: oxyCODONE HCL 5 MG TABLET PO PRN (06:05)
--- NOTE | 2019-11-14 07:38 | PN ---
Post Progress Note - Subjective Subjective: ambulating, tolerating PO, lochia decreased, passing flatus, voiding, overnight presentation improved, baby in NICU Post Day: 2 Type of Delivery: Repeat C/S Vital Signs: Vital Signs Temperature 98.2 F 11/13/19 21:12 Pulse Rate 78 11/13/19 21:12 Respiratory Rate 18 11/13/19 21:12 Blood Pressure 132/85 11/13/19 21:12 O2 Sat by Pulse Oximetry (%) 98 11/12/19 09:00 Breast Exam: Yes: Other Uterus: Yes: Fundus Firm Incision: Yes: Antonella intact Abdomen/GI: Yes: Abdomen soft, Tolerating PO Lochia, amount: Small Extremities: Yes: Calves non-tender Perineum: Yes: Intact Activity: Ambulating - Labs Labs: CBC WBC 9.3 K/mm3 (4.0-10.0) 11/13/19 08:05 RBC 3.81 M/mm3 (3.60-5.2) 11/13/19 08:05 Hgb 9.3 GM/dL (10.7-15.3) L 11/13/19 08:05 Hct 28.7 % (32.4-45.2) L 11/13/19 08:05 MCV 75.4 fl (80-96) L 11/13/19 08:05 MCH 24.3 pg (25.7-33.7) L 11/13/19 08:05 MCHC 32.2 g/dl (32.0-36.0) 11/13/19 08:05 RDW 15.0 % (11.6-15.6) 11/13/19 08:05 Plt Count 209 K/MM3 (134-434) 11/13/19 08:05 MPV 8.8 fl (7.5-11.1) 11/13/19 08:05 Absolute Neuts (auto) 7.2 K/mm3 (1.5-8.0) 11/13/19 08:05 Neutrophils % 77.2 % (42.8-82.8) 11/13/19 08:05 Lymphocytes % 16.8 % (8-40) D 11/13/19 08:05 Monocytes % 5.1 % (3.8-10.2) 07/08/20 08:05 Eosinophils % 0.7 % (0-4.5) D 11/13/19 08:05 Basophils % 0.2 % (0-2.0) 11/13/19 08:05 Nucleated RBC % 0 % (0-0) 11/13/19 08:05 Assessment/Plan POD # 2 in stable condition, infant in NICU and likely staying an additional day, patient desires to stay as well. PP/post-op precautions discussed and all questions answered -Continue PP care -Encourage ambulation -D/C home tomorrow
[2019-11-14] MEDS: PRENATAL VITAMINS W/ FOLIC ACID TABLET (FP) PO SCH (09:19)
[2019-11-14] MEDS: FERROUS SO4 325 MG TABLET (FP) PO SCH ×2 (09:19→22:33)
[2019-11-15] MEDS: IBUPROFEN 600 MG TABLET (FP) PO PRN (08:27)
[2019-11-15] MEDS: ACETAMINOPHEN 325 MG TABLET (FP) PO PRN (08:27)
[2019-11-15] MEDS: SIMETHICONE 80 MG TAB.CHEW (FP) PO PRN (08:27)
--- NOTE | 2019-11-15 08:29 | DS ---
Physical Examination Vital Signs: Vital Signs Temperature 97.8 F 11/14/19 22:35 Pulse Rate 68 11/14/19 22:35 Respiratory Rate 20 11/14/19 22:35 Blood Pressure 128/76 11/14/19 22:35 O2 Sat by Pulse Oximetry (%) 98 11/12/19 09:00 Constitutional: Yes: Well Nourished, No Distress, Calm Eyes: Yes: WNL, Conjunctiva Clear, EOM Intact HENT: Yes: WNL, Atraumatic, Normocephalic Neck: Yes: WNL, Supple, Trachea Midline Cardiovascular: Yes: WNL, Regular Rate and Rhythm Respiratory: Yes: WNL, Regular, CTA Bilaterally Gastrointestinal: Yes: WNL, Normal Bowel Sounds Musculoskeletal: Yes: WNL Extremities: Yes: WNL Edema: No Integumentary: Yes: WNL Neurological: Yes: WNL, Alert, Oriented ...Motor Strength: WNL Psychiatric: Yes: WNL Labs: CBC, BMP 11/13/19 08:05 11/11/19 18:38 Discharge Summary Problems reviewed: Yes Reason For Visit: ADMIT Current Active Problems Status post section routine follow-up (Acute) Procedures: Principal: Repeat Hospital Course: Patient presented for NST after BPP with MFM FHT was concerning for intermittent late decelerations She had a repeat She met all post op milestones She was discharged home on POD#3 Condition: Stable - Instructions Diet, Activity, Other Instructions: Regular Diet Follow up in one week for staple removal Referrals: Marla Cheney MD [Staff Physician] - Disposition: HOME - Home Medications Comprehensive Discharge Medication List: Ambulatory Orders Vitamins (Sjr) - 1 tab PO DAILY 10/31/19 Acetaminophen [Tylenol] 650 mg PO Q6H PRN #30 capsule MDD 5 11/14/19 Ibuprofen 600 mg PO Q6H PRN #30 tablet 11/14/19 Oxycodone HCl 5 mg PO Q6H PRN 3 Days #12 tablet MDD 5 11/14/19
[2019-11-15 09:09] LABS: BASO % 0.5 % (0-2.0); EOS % 1.1 % (0-4.5); HEMOGLOBIN 9.6 GM/dL (10.7-15.3); LYMPH % 15.8 % (8-40); MCH 24.3 pg (25.7-33.7); MCHC 31.9 g/dl (32.0-36.0); MEAN PLT VOLUME 8.4 fl (7.5-11.1); MONO % 3.6 % (3.8-10.2); PLATELET COUNT 235 K/MM3 (134-434); RBC 3.95 M/mm3 (3.60-5.2); RDW 15.2 % (11.6-15.6); WHITE BLOOD COUNT 7.1 K/mm3 (4.0-10.0)
[2019-11-15 10:13] VITALS: BP 114/69; PULSE 61; TEMP 98.3
[2019-11-15] MEDS: FERROUS SO4 325 MG TABLET (FP) PO SCH (10:26)
[2019-11-15] MEDS: PRENATAL VITAMINS W/ FOLIC ACID TABLET (FP) PO SCH (10:26)
== END 2019-11-15 15:45 | disposition home or self-care (01) | DRG 540 ==
LOC: JDEL 16:20 → JLDR 21:20 → J3W 11-12 02:19
PROVIDERS: ADMIT Obstetrics & Gynecology; ATTEND Obstetrics & Gynecology
PROC: 10D00Z1 Extraction of Products of Conception, Low, Open Approach (ICD-10-PCS; principal; 2019-11-12)
DX: O76 Abnormality in fetal heart rate and rhythm complicating labor and delivery (principal); O34.211 Maternal care for low transverse scar from previous cesarean delivery; Z3A.38 38 weeks gestation of pregnancy; Z86.2 Personal history of diseases of the blood and blood-forming organs and certain disorders involving the immune mechanism; Z91.013 Allergy to seafood; Z37.0 Single live birth
CPT/HCPCS: 36415; 76819-TC; 80048; 85025; 85610; 85730; 86780; 86850; 86900; 86901; 88307-TC; U0003

== ENCOUNTER 2019-11-17 14:01 | Emergency (ER) | payer OTHER ==
--- NOTE | 2019-11-17 14:09 | PDOC ---
Rapid Medical Evaluation Time Seen by Provider: 11/17/19 14:04 Medical Evaluation: Allergies Allergy/AdvReac Type Severity Reaction Status Date / Time shellfish derived AdvReac Mild Itching Verified 11/11/19 18:29 11/17/19 14:06 I performed a brief in-person evaluation of this patient. Pt is a 29 y/o female 6 days s/p delivery @ 38w6d. The patient is complaining of abdominal pain and bruising to the area. She has taken ibuprofen, tylenol and oxycodone which have not been helping. Pertinent physical exam findings: ecchymosis to the right side of the incision site. no sign of infection or drainage. I have ordered the following: UA, Ucx ordered Patient to proceed to ED for further evaluation. Discharge Disposition - Diagnosis Abdominal pain - Referrals - Patient Instructions - Post Discharge Activity
[2019-11-17 14:11] VITALS: BMI 24.7
--- NOTE | 2019-11-17 14:28 | PDOC ---
History of Present Illness - General Chief Complaint: Pain Stated Complaint: ABD PAIN Time Seen by Provider: 11/17/19 14:04 History Source: Patient - History of Present Illness Initial Comments: 11/17/19 14:43 29F w/no PMH, recent 6 days ago p/w ongoing abdominal pain from surgical site. She denies any drainage, bleeding, or pus from surgical site. She reports 7/10 non-radiating pain localized to the incision site. She is currently taking q6h motrin 600mg, alternating with prescribed percocet. She denies fevers, chills, weakness, fatigue, vomiting, diarrhea. Ob: Dr. Cheney Past History - Medical History Allergies/Adverse Reactions: Allergies Allergy/AdvReac Type Severity Reaction Status Date / Time shellfish derived AdvReac Mild Itching Verified 11/17/19 14:08 Home Medications: Ambulatory Orders Vitamins (Sjr) - 1 tab PO DAILY 10/31/19 Acetaminophen [Tylenol] 650 mg PO Q6H PRN #30 capsule MDD 5 11/14/19 Ibuprofen 600 mg PO Q6H PRN #30 tablet 11/14/19 Oxycodone HCl 5 mg PO Q6H PRN 3 Days #12 tablet MDD 5 11/14/19 Asthma: No Cancer: No Cardiac Disorders: No COPD: No Diabetes: No HTN: No Seizures: No Thyroid Disease: No - Psycho-Social/Smoking History Smoking History: Never smoked Have you smoked in the past 12 months: No - Substance Abuse Hx (Audit-C & DAST Scrn) How often the patient has a drink containing alcohol: Never Score: In Men: 4 or > Positive; In Women: 3 or > Positive: 0 Screen Result (Pos requires Nsg. Audit-10AR): Negative Review of Systems - Review of Systems Able to Perform ROS?: Yes Comments:: 11/17/19 14:47 GENERAL/CONSTITUTIONAL: No fever or chills. No weakness. HEAD, EYES, EARS, NOSE AND THROAT: No change in vision. No ear pain or discharge. No sore throat. CARDIOVASCULAR: No chest pain or shortness of breath RESPIRATORY: No cough, wheezing, or hemoptysis. GASTROINTESTINAL: Abdominal pain. No nausea, vomiting, diarrhea or constipation. GENITOURINARY: No dysuria, frequency, or change in urination. MUSCULOSKELETAL: No joint or muscle swelling or pain. No neck or back pain. SKIN: No rash NEUROLOGIC: No headache, vertigo, loss of consciousness, or change in strength/sensation. ENDOCRINE: No increased thirst. No abnormal weight change HEMATOLOGIC/LYMPHATIC: No anemia, easy bleeding, or history of blood clots. ALLERGIC/IMMUNOLOGIC: No hives or skin allergy. *Physical Exam - Vital Signs Last Vital Signs Temp Pulse Resp BP Pulse Ox 98.3 F 85 18 121/82 100 11/17/19 14:06 11/17/19 14:06 11/17/19 14:06 11/17/19 14:06 11/17/19 14:06 - Physical Exam 11/17/19 14:47 GENERAL: Awake, alert, and fully oriented, in no acute distress HEAD: No signs of trauma, normocephalic, atraumatic EYES: PERRLA, EOMI, sclera anicteric, conjunctiva clear ENT: Auricles normal inspection, hearing grossly normal, nares patent, oropharynx clear without exudates. Moist mucosa NECK: Normal ROM, supple, no lymphadenopathy, JVD, or masses LUNGS: No distress, speaks full sentences, clear to auscultation bilaterally HEART: Regular rate and rhythm, normal S1 and S2, no murmurs, rubs or gallops, peripheral pulses normal and equal bilaterally. ABDOMEN: Surgical site stapled, healing well, no overlying erythema, swelling, discharge, or bleeding. Tenderness over surgical site. Otherwise: Soft, nontender, normoactive bowel sounds. No guarding, no rebound. No masses EXTREMITIES : Normal inspection, Normal range of motion, no edema. No clubbing or cyanosis NEUROLOGICAL: Cranial nerves II through XII grossly intact. Normal speech, normal gait, no focal sensorimotor deficits SKIN: Warm, Dry, normal turgor, no rashes or lesions noted Medical Decision Making - Medical Decision Making 11/17/19 17:51 29F w/hx recent uncomplicated 6 days ago p/w ongoing pain from surgical site, no erythema or drainage on exam, likely representing post-op pain. Plan: UA Urine culture Toradol 30mg IM Dispo: Discharge with close manager regional sales follow up Discharge - Discharge Information Problems reviewed: Yes Clinical Impression/Diagnosis: Abdominal pain, History of section Condition: Stable Disposition: HOME - Admission No - Follow up/Referral Referrals: Alvaro Hodges II, DO [Primary Care Provider] - Marla Cheney MD [Staff Physician] - - Patient Discharge Instructions Patient Printed Discharge Instructions: DI for Abdominal Pain-Adult Additional Instructions: You were seen in the ER for abdominal pain. Your urine did not show signs of infection. Your surgical site is healing well at this time. Please be sure to follow up with your manager regional sales as soon as possible, in the next 1-2 days. Return to the ER if you develop high fevers, chills, chest pain, trouble breathing, or begin to notice discharge, blood, or pus from the surgical wound. - Post Discharge Activity
--- NOTE | 2019-11-17 14:35 | PDOC ---
Attending Attestation - Resident Resident Name: Diogenes Camilo - ED Attending Attestation I have performed the following: I have examined & evaluated the patient, The case was reviewed & discussed with the resident, I agree w/resident's findings & plan - HPI HPI: 11/17/19 15:24 29F w/no PMH, recent 6 days ago p/w ongoing abdominal pain from surgical site of C section done on 11/12/19, worse with movement and urinating. She denies any drainage, bleeding, or pus from surgical site. She reports 11/14 non-radiating pain localized to the incision site. She is currently taking q6h motrin 600mg, alternating with prescribed percocet. She denies fevers, chills, weakness, fatigue, vomiting, diarrhea. - Physicial Exam PE: 11/17/19 14:34 Agree with the resident's HPI and PE as documented in the electronic medical record. NAD, well appearing, EOMI, PERRL, nl conjunctiva, anicteric; neck supple. lungs clear, RRR, abdomen soft +lower abdominal horizontal C section scar with cachorro in place, c/d, no purulence, no malodor, no erythema and no mass palpated. no dehiscence. no rebound, guarding. GRANADOS x4, no focal neuro deficits. No peripheral edema. normal color for ethnicity, [facility]. 11/17/19 15:25 11/17/19 16:09 - Medical Decision Making 11/17/19 14:34 Vital Signs Temp Pulse Resp BP Pulse Ox 98.3 F 85 18 121/82 100 11/17/19 14:06 11/17/19 14:06 11/17/19 14:06 11/17/19 14:06 11/17/19 14:06 vitals reviewed, wnl, reassuring c section on 11/12/[address] Cheney c/o localized pain to the surgical site/c section site does not appear complicated no dehiscence. no mass/fluctuance no erythema, discharge or purulence or odor. no systemic sx area appears healing with the cachorro in tact, no dehiscence noted. UA neg for infection, +epis; f/u urine culture. analgesia here, toradol and tylenol, with improvement. Discharge in stable condition, return precautions, f/u UTILIZATION REVIEW RN Dr Cheney as scheduled this week in 2 days 11/17/19 15:26 11/17/19 16:07 Discharge - Discharge Information Problems reviewed: Yes Clinical Impression/Diagnosis: Abdominal pain, History of section Condition: Stable Disposition: HOME - Admission No - Follow up/Referral Referrals: Alvaro Hodges II, DO [Primary Care Provider] - Marla Cheney MD [Staff Physician] - - Patient Discharge Instructions Patient Printed Discharge Instructions: DI for Abdominal Pain-Adult Additional Instructions: You were seen in the ER for abdominal pain. Your urine did not show signs of infection. Your surgical site is healing well at this time. Please be sure to follow up with your physiotherapy aide as soon as possible, in the next 1-2 days. Return to the ER if you develop high fevers, chills, chest pain, trouble breathing, or begin to notice discharge, blood, or pus from the surgical wound. - Post Discharge Activity
[2019-11-17] MEDS ORDERED: KETOROLAC TROMETHAMINE 30 MG/1 ML VIAL IM ONE (15:19)
[2019-11-17 15:50] LABS: EPI CELLS >36 /uL (0-25.1); HYALINE CASTS 0 /uL (0-3.1); PH,URINE 6.5 (5.0-8.0); URINE APPEARANCE CLOUDY; URINE BACTERIA 1005 /uL (0-1359); URINE BILIRUBIN NEGATIVE (NEGATIVE); URINE COLOR YELLOW; URINE GLUCOSE (UA) NEGATIVE (NEGATIVE); URINE KETONE NEGATIVE (NEGATIVE); URINE LEUK ESTERASE NEGATIVE (NEGATIVE); URINE NITRITE NEGATIVE (NEGATIVE); URINE PROTEIN NEGATIVE (NEGATIVE); URINE RBC 5 /uL (0-23.9); URINE UROBILINOGEN 0.2 mg/dL (0.2-1.0); URINE WBC 5 /uL (0-25.8)
[2019-11-17 16:19] VITALS: BP 120/72; PULSE 78; TEMP 98.2
== END 2019-11-17 16:10 | disposition home or self-care (01) ==
LOC: JER 14:01
PROC: 3E0233Z Introduction of Anti-inflammatory into Muscle, Percutaneous Approach (ICD-10-PCS; principal; 2019-11-17)
DX: R10.9 Unspecified abdominal pain (principal)
CPT/HCPCS: 81003; 87086; 99284-25

== ENCOUNTER 2022-09-20 19:27 | Emergency (ER) | payer OTHER ==
[2022-09-20 19:31] VITALS: BP 135/86; PULSE 110; RESP 18; TEMP 99.2; BMI 26.5
[2022-09-20] MEDS ORDERED: IBUPROFEN 600 MG TABLET (FP) PO ONE ×2 (20:14→20:19)
[2022-09-20] MEDS ORDERED: ACETAMINOPHEN 500 MG TABLET (FP) PO ONE (20:14)
[2022-09-20] MEDS ORDERED: ACETAMINOPHEN 500 MG TABLET (FP) ONE (20:20)
[2022-09-20] MEDS ORDERED: AMOXICILLIN 500 MG CAPSULE (FP) PO ONE (20:43)
[2022-09-20] MEDS ORDERED: AMOXICILLIN 250 MG CAPSULE ONE (21:06)
== END 2022-09-20 21:30 | disposition home or self-care (01) ==
LOC: JERFT 19:27
DX: J02.0 Streptococcal pharyngitis (principal); R50.9 Fever, unspecified; Z20.822 Contact with and (suspected) exposure to COVID-19
CPT/HCPCS: 0241U-QW; 87070; 87077; 99283-25

== ENCOUNTER 2023-09-21 10:28 | Emergency (ER) | payer OTHER ==
[2023-09-21 10:39] VITALS: BP 143/94; PULSE 91; RESP 17; TEMP 98.6; BMI 26.5
[2023-09-21] MEDS: ONDANSETRON 4 MG/2 ML VIAL IVPUSH ONE (11:58)
[2023-09-21] MEDS: SODIUM CHLORIDE 1,000 ML IV STA (11:58)
[2023-09-21] MEDS ORDERED: ONDANSETRON 4 MG/2 ML VIAL ONE (11:59)
[2023-09-21 12:02] LABS: BASO % 0.7 % (0-2.0); EOS % 0.8 % (0-4.5); HEMATOCRIT 33.1 % (32.4-45.2); MCHC 33.1 g/dl (32.0-36.0); MEAN CELL VOLUME 69.6 fl (80-96); MEAN PLT VOLUME 7.8 fl (7.5-11.1); NEUT % 67.5 % (42.8-82.8); PLATELET COUNT 292 10^3/uL (134-434); RBC 4.76 M/mm3 (3.60-5.2); RDW 16.5 % (11.6-15.6); WHITE BLOOD COUNT 6.3 K/mm3 (4.0-10.0)
[2023-09-21 12:03] LABS: HCG,QUALITATIVE URINE Negative
[2023-09-21 12:21] LABS: POTASSIUM 3.8 mmol/L (3.5-5.1)
[2023-09-21 12:23] LABS: CALCIUM 9.1 mg/dL (8.5-10.1); PH,URINE 6.5 (5.0-8.0); URINE APPEARANCE CLEAR; URINE BILIRUBIN NEGATIVE (NEGATIVE); URINE COLOR YELLOW; URINE GLUCOSE (UA) NEGATIVE (NEGATIVE); URINE KETONE NEGATIVE (NEGATIVE); URINE LEUK ESTERASE NEGATIVE (NEGATIVE); URINE NITRITE NEGATIVE (NEGATIVE); URINE PROTEIN NEGATIVE (NEGATIVE); URINE UROBILINOGEN 0.2 mg/dL (0.2-1.0)
[2023-09-21 12:24] LABS: BLOOD UREA NITROGEN 8.3 mg/dL (7-18)
[2023-09-21 12:27] LABS: CREATININE 0.7 mg/dL (0.55-1.3)
[2023-09-21 12:28] LABS: BILIRUBIN,TOTAL 0.4 mg/dL (0.2-1); TOT PROT 7.9 g/dl (6.4-8.2)
== END 2023-09-21 14:00 | disposition home or self-care (01) ==
LOC: JER 10:28
PROC: 3E033GC Introduction of Other Therapeutic Substance into Peripheral Vein, Percutaneous Approach (ICD-10-PCS; principal; 2023-09-21)
PROC: 3E0337Z Introduction of Electrolytic and Water Balance Substance into Peripheral Vein, Percutaneous Approach (ICD-10-PCS; 2023-09-21)
DX: R10.9 Unspecified abdominal pain (principal); R11.2 Nausea with vomiting, unspecified; J02.9 Acute pharyngitis, unspecified; K52.9 Noninfective gastroenteritis and colitis, unspecified
CPT/HCPCS: 36415; 80053; 81003; 83690; 84703; 85025; 87086; 87651; 99284-25